=== PATIENT | male | born 1965 | race Caucasian/White ===

== ENCOUNTER 2016-08-02 02:00 | Inpatient (IN) | payer MEDICARE ==
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
--- NOTE | ~2016-08-02 | DS ---
Unit #: [id number] #: [id number] Patient: MARYAM HUGO [id number] [place] [address] [id number] MR#: [id number] NAME: MARYAM HUGO. ROOM: [facility] Age: 51 Sex: M Admission Date: 08/02/2016 : 1965 Discharge Date: 08/07/2016 Attending Physician: Serafin Adame M.D. Primary Care Physician: Rufino Edmond Jr., A.P.R.N. DISCHARGE SUMMARY REASON FOR ADMISSION Mr. Hugo is a 51-year-old man, recently broke up with his girlfriend, has been drinking beer and whiskey on a daily basis. He had occasional suicidal thoughts and was admitted for stabilization. DIAGNOSTIC STUDIES LABORATORY RESULTS: Please see hospital chart for hospital's records. HOSPITAL COURSE The patient was admitted and placed on the alcohol detox protocol. His home psychiatric medications were continued unchanged. He had an uneventful period of detox, although his detox symptomatology was quite active. He had no seizures, confusion, disorientation, or delirium. On the date of discharge, he had no further suicidal ideation, intent, or plan and was able to contract for safety. DISCHARGE DIAGNOSES AXIS I: Alcohol dependence with withdrawal, uncomplicated; opioid dependence; major depression. AXIS II: No diagnosis. AXIS III: Hypertension, history of hepatitis, history of chronic pain. AXIS IV: AXIS V: DISCHARGE INSTRUCTIONS Follow up with community mental health resources and primary care physician. DISCHARGE MEDICATIONS Zoloft 100 mg daily for depression, Seroquel 100 mg at bedtime for sleep, and Neurontin 600 mg t.i.d. for anxiety. Primary care medicines included Mobic 15 mg daily for pain and Flexeril 5 mg every 8 hours as needed for muscle cramps. CONDITION AT DISCHARGE Improved. PROGNOSIS Fair to good. DIET AND ACTIVITY Per primary care doctor. Unit #: [id number] #: [id number] Patient: MARYAM HUGO Dictated by... Serafin Adame M.D. MR/modl TD: 08/08/2016 02:28 JOB #: [id number] DISCHARGE SUMMARY Page 1 of 1 X Serafin Adame MD DISCHARGE SUMMARY
--- NOTE | ~2016-08-02 | HP ---
Unit #: [id number] #: [id number] Patient: JEFF CASTELLANOS [id number] [place] [address] [id number] MR#: [id number] NAME: JEFF CASTELLANOS. ROOM: [facility] Age: 51 Sex: M Admission Date: 08/02/2016 : 1965 Attending Physician: Serafin Adame M.D. Admitting Physician: Serafin Adame M.D. Primary Care Physician: Rufino Edmond Jr., A.P.R.N. HISTORY AND PHYSICAL HISTORY OF PRESENT ILLNESS Jeff is a 51-year-old male admitted on 08/02/2016 to [facility] for detox from alcohol. PAST MEDICAL HISTORY Right ankle fracture and left eye blindness. PAST SURGICAL HISTORY Left knee surgery times four and back surgery after a fracture. SOCIAL HISTORY Uses dip, drinks 12 beers and a fifth of alcohol daily and history of heroin use as the most recent use nine months ago. He is currently and living with his siblings. FAMILY HISTORY Noncontributory. REVIEW OF SYSTEMS CONSTITUTIONAL: No fever or chills. HEENT: Denies any sore throat, ear pain or runny nose. CARDIOVASCULAR: Denies chest pain, irregular heart rhythm or palpitations. CHEST: Denies shortness of breath or cough. No hemoptysis. GASTROINTESTINAL: Denies nausea, vomiting, diarrhea or chronic constipation. ENDOCRINE: Denies history of increased thirst or urination. No recent significant weight loss or gain. GENITOURINARY: Denies dysuria, frequency, or hematuria. SKIN: Denies any rashes. HEMATOLOGIC: Denies history of increased bleeding or bruising. MUSCULOSKELETAL: Denies any hot, swollen joints. No generalized muscle pain. NEUROLOGIC: Denies problems with vision or speech. No frequent, severe headaches. No numbness, tingling or weakness in any extremities. Denies loss of bladder or bowel control. CURRENT MEDICATIONS 1. Tramadol 2. Gabapentin 3. Flexeril 4. Meloxicam Unit #: [id number] #: [id number] Patient: JEFF CASTELLANOS 5. Zoloft 6. Seroquel 7. ALLERGIES Codeine. PHYSICAL EXAMINATION GENERAL: Alert, oriented, in no acute distress. VITAL SIGNS: Blood pressure 122/79, heart rate 90, temperature 97.4. HEIGHT: 5 foot 8 inches. WEIGHT: 210 pounds. SKIN: Warm and dry without rash or lesion. HEENT: Normocephalic. TMs not viewed. Oral and nasal passages clear. Conjunctivae clear. PERRLA. EOMs intact. NECK: Supple without lymphadenopathy or thyromegaly. HEART: Regular rate and rhythm without murmur. LUNGS: Clear. ABDOMEN: Soft, nontender, without masses or hepatosplenomegaly. : Not done. MUSCULOSKELETAL: Right ankle fracture ____ with boot. NEUROLOGICAL: Grossly within normal limits. Cranial Nerves: II: Visual callejas are intact. III, IV AND : Extraocular movements are intact. Pupils are equal, round and reactive to light. V: Facial sensation is grossly normal. VII: Facial movements and expression are normal. VIII: Auditory acuity grossly intact. IX, X: Uvula is midline. Phonation is normal. XI: Patient shrugs shoulders and turns head normally. XII: Tongue protrudes in the midline. Sensory and Motor Function: Sensory and motor sensation is grossly normal. Motor: moves all extremities well. Coordination: Gait is normal. Deep Tendon Reflexes: Intact. IMPRESSION 1. Psychiatric admission. 2. Right ankle fracture currently with a boot and left eye blindness. RECOMMENDATIONS Psychiatric, per psychiatrist. MEDICAL: I see no contraindications to participating in facility's activities. MEDICAL PROGNOSIS Good. MEDICAL CONDITION Stable. Dictated by... Nikole Lemus A.P.R.N. MJCassy/elliot Unit #: [id number] #: [id number] Patient: JEFF CASTELLANOS TD: 08/02/2016 22:18 JOB #: [id number] HISTORY AND PHYSICAL Page 1 of 1 X NIKOLE ADAME APRN HISTORY AND PHYSICAL
[~2016-08-02 02:00] MED LIST: AMBIEN PO; FLEXERIL10 MG PO; KLONOPIN PO; LORTAB 10/500 T1 TAB PO; MEDROL4 MG/DOSE- PO; NAPROSYN500 MG PO; NORCO 10/325 TA1 TAB PO; PREDNISONE PO; VICODIN 5/1 TAB 5/50 PO; VOLTAREN75 MG PO; ZOLOFT PO
[2016-09-17] MEDS ORDERED: PATIENT'S PHARMACY (12:57)
[2016-09-17] MEDS ORDERED: NO MEDICATIONS (13:04)
== END 2016-08-07 16:57 | disposition hospice, home (50) | DRG 897 ==
LOC: P1E 08:03
PROC: HZ2ZZZZ Detoxification Services for Substance Abuse Treatment (ICD-10-PCS; principal; 2016-08-02)
DX: F10.230 Alcohol dependence with withdrawal, uncomplicated (principal); F11.10 Opioid abuse, uncomplicated; R45.851 Suicidal ideations; I10 Essential (primary) hypertension; Z86.19 Personal history of other infectious and parasitic diseases; Z88.5 Allergy status to narcotic agent; Z81.8 Family history of other mental and behavioral disorders; Z81.1 Family history of alcohol abuse and dependence; G89.29 Other chronic pain
CPT/HCPCS: 29540; 73590; 73610; 73630; 86592; 94760; 99285; G0480

== ENCOUNTER 2016-09-17 14:07 | Inpatient (IN) | payer MEDICARE ==
--- NOTE | ~2016-09-17 | PA ---
Unit #: [id number] #: [id number] Patient: MARYAM HUGO [id number] [facility] [address] [place] [address] [id number] I MR#: [id number] NAME: MARYAM HUGO. ROOM: [facility] Age: 51 Sex: M Admission Date: 09/17/2016 : 1965 Date of Assessment: 09/18/2016 Attending Physician: Serafin Adame M.D. Admitting Physician: Serafin Adame M.D. Primary Care Physician: Rufino Edmond Jr., A.P.R.N. PSYCHIATRIC ASSESSMENT INFORMANT(S) Patient, reliable OLOP, reliable CHIEF COMPLAINT Alcohol dependence. HISTORY OF PRESENT ILLNESS Mr. Hugo is a 51-year-old man with previous admissions to this facility for alcohol detox. He reported his longest period of sober living this year has been 30 days, and he is drinking up to two-fifths of vodka daily. He had no suicidal ideation, intent, or plan, and was admitted for stabilization. PAST PSYCHIATRIC HISTORY Last admission was in July of 2016 as well as previous admissions to [place], [place], and other facilities in [place]. FAMILY PSYCHIATRIC HISTORY The patient's father was an alcoholic, and his mother suffered from an unspecified mental illness. SOCIAL HISTORY The patient has a long-term disability due to work related injury. He is from a girlfriend and is erratically staying with family. PAST MEDICAL HISTORY Multiple back and knee surgeries. MEDICATIONS Please see MAR. ALLERGIES Codeine. SUBSTANCE USE HISTORY As noted, the patient has been using alcohol to excess. He has occasionally used heroin. MENTAL STATUS EXAMINATION Mr. Hugo presented as a mildly disheveled man appearing his stated age. His speech was easily understood. His musculoskeletal examination demonstrated mild psychomotor agitation. His mood was anxious with a congruent affect. He was alert and fully oriented. His memory and Unit #: [id number] #: [id number] Patient: MARYAM HUGO concentration were intact. His thought processes were logical with no psychosis. He denied suicidal ideation, intent, or plan. Insight and judgment fair. Fund of knowledge and abstraction fair. ASSETS AND LIABILITIES Patient knows local resources and is presenting again voluntarily for treatment. Liabilities include relapse and unstable housing. ADMITTING DIAGNOSES AXIS I: Alcohol dependence and withdrawal and complicated history of opiate abuse. AXIS II: No diagnosis. AXIS III: Hypertension. History of hepatitis. History of chronic pain. PSYCHIATRIC PLAN Patient was admitted and placed on the alcohol detox protocol. Home medications will be determined by contacting his pharmacy, and he will be replaced on these as appropriate. He will enroll in dual diagnosis groups and activities, and physical examination and laboratory studies will be ordered and reviewed. Treatment goals are resolution of intoxication, improvement in insight, and improvement in coping skills. DISCHARGE PLANNING: Follow up with [facility] mental health. ESTIMATED LENGTH OF STAY 5 days. Dictated by... Serafin Adame M.D. TACOS/linda TD: 09/21/2016 09:25 JOB #: [id number] PSYCHIATRIC ASSESSMENT Page 1 of 1 X Serafin Adame MD X PSYCHIATRIC ASSESSMENT
--- NOTE | ~2016-09-17 | DS ---
Unit #: [id number] #: [id number] Patient: MARYAM HUGO [id number] [facility] [address] [place] [address] [id number] I MR#: [id number] NAME: MARYAM HUGO. ROOM: [facility] Age: 51 Sex: M Admission Date: 09/17/2016 : 1965 Discharge Date: 09/25/2016 Attending Physician: Serafin Adame M.D. Primary Care Physician: Rufino Edmond Jr., A.P.R.N. DISCHARGE SUMMARY REASON FOR ADMISSION Mr. Hugo is a 51-year-old man with previous admission to this facility for chemical dependence. His longest period of sobriety this year has been 30 days and he is drinking up to two-fifths of dark vodka daily during this current relapse. He denied suicidal ideation, intent, or plan and was admitted for stabilization. LABORATORY DATA Please see hospital chart. HOSPITAL COURSE The patient was admitted and placed on the alcohol detox protocol. His home medications were determined by his pharmacy and restarted. He engaged in discharge planning with the social work staff, planning to go to the [facility] recovery facility in [place], having arranged this with his unit social workers. He was pleasant and cooperative with discharge planning and on the date of discharge, he was discharged to the [facility] for long-term care. DISCHARGE DIAGNOSES AXIS I: Alcohol dependence with withdrawal, uncomplicated; history of opioid abuse; history of mood disorder. AXIS II: No diagnosis. AXIS III: Hypertension, hepatitis C, chronic pain. AXIS IV: AXIS V: DISCHARGE INSTRUCTIONS Follow up with primary care physician and with [facility] in [place]. DISCHARGE MEDICATIONS Zoloft 100 mg daily for depression, Neurontin 600 mg t.i.d. for anxiety, Seroquel 100 mg at bedtime as needed for insomnia. CONDITION AT DISCHARGE Improved. PROGNOSIS Fair, but will improve with compliance and followup. DIET AND ACTIVITY Per primary care doctor. Unit #: [id number] #: [id number] Patient: MARYAM HUGO Dictated by... Serafin Adame M.D. /marybethl TD: 10/06/2016 02:34 JOB #: [id number] DISCHARGE SUMMARY Page 1 of 1 X Serafin Adame MD DISCHARGE SUMMARY
--- NOTE | ~2016-09-17 | PN ---
Unit #: [id number] #: [id number] Patient: MARYAM CASTELLANOS [id number] [place] [address] [id number] MR#: [id number] NAME: MARYAM CASTELLANOS. ROOM: [facility] Age: 51 Sex: M Admission Date: 09/17/2016 : 1965 Attending Physician: Serafin Adame M.D. Admitting Physician: Serafin Adame M.D. Primary Care Physician: Rufino Edmond Jr., Irma.PErikaRPablo [facility] PROGRESS NOTES DATE September 23, [address] Serafin Adame at [facility] DISCUSSION This patient as seen and assessed on September 23, 2016. Upon today's assessment, the patient was found interacting positively with peers in the day room. He approached this provider and stated that he got to see his family today and that he was thankful for that. His only complaint is poor sleep as evidenced by frequent awakenings and he does report that he has been compliant with his medications. He states that he looks forward to his discharge tomorrow and follow up with [facility] in [place], and at this time he reports no suicidal or homicidal ideation and verbalizes no plan or intent. Dictated by... MICHELE Kennedy TD: 09/26/2016 07:08 JOB #: [id number] [facility] PROGRESS NOTES Page 1 of 1 X AZEEM ASHBY PROGRESS NOTE
--- NOTE | ~2016-09-17 | HP ---
Unit #: [id number] #: [id number] Patient: JEFF CASTELLANOS [id number] [place] [address] [id number] MR#: [id number] NAME: JEFF CASTELLANOS. ROOM: [facility] Age: 51 Sex: M Admission Date: 09/17/2016 : 1965 Attending Physician: Serafin Adame M.D. Admitting Physician: Serafin Adame M.D. Primary Care Physician: Rufino Edmond Jr., A.P.R.N. HISTORY AND PHYSICAL HISTORY OF PRESENT ILLNESS Jeff is a 51 year old admitted to [facility] because of his continued abuse of alcohol. He has had other admissions to this facility for the same. PAST MEDICAL HISTORY 1. Long history of alcohol abuse. 2. History of illicit substance abuse to include IV heroin. 3. High blood pressure. 4. Hyperlipidemia. 5. Degenerative disc disease. 6. History of hepatitis B. PAST SURGICAL HISTORY 1. Surgical fusion. 2. Low back. 3. Left knee. 4. 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 5. T & A. 6. PE tubes. ALLERGIES Codeine. SOCIAL HISTORY Dips. Admits to abusing alcohol frequently. Has a long history of opioid abuse to include IV heroin. FAMILY HISTORY Medically noncontributory. REVIEW OF SYSTEMS CONSTITUTIONAL: No fever or chills. HEENT: Denies any sore throat, ear pain or runny nose. CARDIOVASCULAR: Denies chest pain, irregular heart rhythm or palpitations. CHEST: Denies shortness of breath or cough. No hemoptysis. GASTROINTESTINAL: Denies nausea, vomiting, diarrhea or chronic constipation. ENDOCRINE: Denies history of increased thirst or urination. No recent significant weight loss or gain. GENITOURINARY: Denies dysuria, frequency, or hematuria. SKIN: Denies any rashes. Unit #: [id number] #: [id number] Patient: JEFF CASTELLANOS HEMATOLOGIC: Denies history of increased bleeding or bruising. MUSCULOSKELETAL: Denies any hot, swollen joints. No generalized muscle pain. NEUROLOGIC: Denies problems with vision or speech. No frequent, severe headaches. No numbness, tingling or weakness in any extremities. Denies loss of bladder or bowel control. CURRENT MEDICATIONS Detox protocol PHYSICAL EXAMINATION GENERAL: Alert, well-nourished, in no apparent distress. VITAL SIGNS: Blood pressure 130/86, heart rate 80, respirations 16, temperature 98.6. WEIGHT: 200 pounds. HEIGHT: 5'9". SKIN: Warm and dry without rash or lesion. HEENT: Normocephalic. TMs not viewed. Oral and nasal passages clear. Conjunctivae clear. Pupils equal, round and reactive to light and accommodation. Extraocular movements intact. NECK: Supple without lymphadenopathy or thyromegaly. HEART: Regular rate and rhythm without murmur. LUNGS: Clear. ABDOMEN: Soft, nontender. : Not done. EXTREMITIES: No evidence of cyanosis, clubbing or edema. Moves all extremities without focal deficit. NEUROLOGICAL: Grossly within normal limits. Cranial Nerves: II: Visual callejas are intact. III, IV AND : Extraocular movements are intact. Pupils are equal, round and reactive to light. V: Facial sensation is grossly normal. VII: Facial movements and expression are normal. VIII: Auditory acuity grossly intact. IX, X: Uvula is midline. Phonation is normal. XI: Patient shrugs shoulders and turns head normally. XII: Tongue protrudes in the midline. Sensory and Motor Function: Sensory and motor sensation is grossly normal. Motor: moves all extremities well. Coordination: Gait is normal. Deep Tendon Reflexes: Intact. IMPRESSION Psychiatric admission RECOMMENDATIONS PSYCHIATRIC: Per psychiatrist. MEDICAL: I see no contraindications to participating in facility's activities. MEDICAL PROGNOSIS Good. MEDICAL CONDITION Stable. Unit #: [id number] #: [id number] Patient: JEFF CASTELLANOS Dictated by... Dyana Soria P.A.-C. for Twyla Chilel/elliot TD: 09/17/2016 22:05 JOB #: [id number] HISTORY AND PHYSICAL Page 1 of 1 X Dyana Soria HISTORY AND PHYSICAL
--- NOTE | ~2016-09-17 | PN ---
Unit #: [id number] #: [id number] Patient: MARYAM CASTELLANOS [id number] [place] [address] [id number] I MR#: [id number] NAME: MARYAM CASTELLANOS. ROOM: [facility] Age: 51 Sex: M Admission Date: 09/17/2016 : 1965 Attending Physician: Serafin Adame M.D. Admitting Physician: Serafin Adame M.D. Primary Care Physician: Rufino Edmond Jr., A.P.R.N. [facility] PROGRESS NOTES DATE September 22, [address] Serafin Adame at [facility] DISCUSSION Upon today's assessment, the patient was found ambulating in the hallway, he reports that he has plans to discharge on Saturday and will travel to [facility] in [place]. He asked, at this time, and requests irregular visits so that his three daughters may meet him before he goes due to the fact that he will be gone for an extended period of time. At this time, he has no physical complaints of withdrawal. There is still some fine tremor noted in bilateral upper extremities and he states "he is grateful for what we do here." PLAN Order will be written to provide an irregular visit so that his three daughters may visit him on Saturday. Dictated by... MICHELE Kennedy TD: 09/26/2016 05:26 JOB #: [id number] [facility] PROGRESS NOTES Page 1 of 1 X AZEEM ASHBY PROGRESS NOTE
[~2016-09-17 14:07] MED LIST changes: +NO MEDICATIONS; +PATIENT'S PHARMACY
== END 2016-09-25 12:15 | DRG 897 ==
LOC: P1E 15:55
PROC: HZ2ZZZZ Detoxification Services for Substance Abuse Treatment (ICD-10-PCS; principal; 2016-09-17)
DX: F10.239 Alcohol dependence with withdrawal, unspecified (principal); I10 Essential (primary) hypertension; G89.29 Other chronic pain
CPT/HCPCS: 36415; 80048; 80076; 85025; 86592; 99285; G0480